=== PATIENT | male | born 1950 | race Caucasian/White ===

== ENCOUNTER 2017-06-20 13:26 | Emergency (ER) | payer MEDICARE ==
[2017-06-20 13:45] VITALS: BP 112/78
--- NOTE | 2017-06-20 13:52 | ED ---
Respiratory - HPI Summary HPI Summary: 66-year-old male presents with cough for the past week. He has history asthma. He denies any chest pain or shortness of breath. Denies abdominal pain. He states cough is productive sometimes. He denies a sore throat. He denies any fevers. He does have a history of pneumonia. He also states he's has been having a rash for the past couple days. The rash is spreading. He states that he touched some poison oak as he was outside pulling weeds. He states he's had this rash before. He states that when he gets this rash a steroid pack helps resolve it. He states the rash it itchy. He states he feels it starting on his lip as he touched his lip with his hand. The rash is on the right forearm. - History of Current Complaint Chief Complaint: UCGeneralIllness Stated Complaint: RASH COUGH Time Seen by Provider: 06/20/17 13:45 Pain Intensity: 0 - Allergy/Home Medications Allergies/Adverse Reactions: Allergies Allergy/AdvReac Type Severity Reaction Status Date / Time benzalkonium chloride Allergy Rash Verified 06/20/17 13:36 [From Merthiolate (benzalkonium)] Home Medications: Home Medications Hydrocortisone 1% CREAM(NF) 1 applic TOPICAL BID PRN 06/20/17 [History Confirmed 06/20/17] PMH/Surg Hx/FS Hx/Imm Hx Endocrine/Hematology History: Denies: Hx Anticoagulant Therapy Respiratory History: Reports: Hx Asthma - Surgical History Surgery Procedure, Year, and Place: Lumpectomy; T&A; [place] teeth extraction Infectious Disease History: Yes Infectious Disease History: Reports: Hx Hepatitis - Hep A Denies: Traveled Outside the [place] in Last 30 Days - Family History Known Family History: Positive: Hypertension - Social History Alcohol Use: Weekly Substance Use Type: Reports: None Smoking Status (MU): Never Smoked Tobacco Review of Systems Negative: Fever Negative: Chest Pain Positive: Cough. Negative: Shortness Of Breath Positive: Rash All Other Systems Reviewed And Are Negative: Yes Physical Exam Triage Information Reviewed: Yes Vital Signs On Initial Exam: Initial Vitals Temp Pulse Resp BP Pulse Ox 98.7 F 57 18 112/78 97 06/20/17 13:39 06/20/17 13:39 06/20/17 13:39 06/20/17 13:39 06/20/17 13:39 Vital Signs Reviewed: Yes Appearance: Positive: Well-Appearing Skin: Positive: Warm, Dry, Other - vesicles and papules on erythema base with exocirations on right forearm Head/Face: Positive: Normal Head/Face Inspection Eyes: Positive: Normal, Conjunctiva Clear Respiratory/Lung Sounds: Positive: Clear to Auscultation, Breath Sounds Present Cardiovascular: Positive: Normal, RRR Abdomen Description: Positive: Nontender, Soft Bowel Sounds: Positive: Present Musculoskeletal: Positive: Normal Neurological: Positive: Normal Psychiatric: Positive: Normal Diagnostics - Vital Signs Vital Signs Temp Pulse Resp BP Pulse Ox 06/20/17 13:39 98.7 F 57 18 112/78 97 - Laboratory Lab Statement: Any lab studies that have been ordered have been reviewed, and results considered in the medical decision making process. - Radiology chest Xray Interpretation: No Acute Changes Radiology Interpretation Completed By: Radiologist Disposition - Course Course Of Treatment: 66-year-old male presents with cough for the past week. He has history asthma. He denies any chest pain or shortness of breath. Denies abdominal pain. He states cough is productive sometimes. He denies a sore throat. He denies any fevers. He does have a history of pneumonia. He also states he's has been having a rash for the past couple days. The rash is spreading. He states that he touched some poison oak as he was outside pulling weeds. He states he's had this rash before. He states that when he gets this rash a steroid pack helps resolve it. He states the rash it itchy. He states he feels it starting on his lip as he touched his lip with his hand. The rash is on the right forearm. on exam has vesicles and papules on erythema in lines. appears to have contact dermatitis. will treat with steriod. lungs CTA. patient requesting chest xray. chest xray normal. will have continue inhaler. patient decline cough medication. patient understand and agrees with plan. - Differential Dx - Cardiopulmonary Differential Diagnoses - Cardiopulmonary: Asthma, Bronchitis, Lower Resp Infection - Diagnoses Provider Diagnoses: Rash, Bronchitis Discharge - Sign-Out/Discharge Documenting (check all that apply): Discharge/Admit/Transfer - Discharge Plan Condition: Good Disposition: HOME Prescriptions: methylPREDNISolone [Medrol Dosepak 4 MG*] 4 mg PO .SEE ALLISON INSTRUCTION #1 packet Patient Education Materials: Contact Dermatitis (ED), Acute Bronchitis (ED) Referrals: Lesly Michelle MD [Primary Care Provider] - Additional Instructions: take steroid pack as prescribed can apply hydrocortisone to the area twice a day for itching Continue inhaler as needed every 4-6 hours for cough Follow up with primary within 5 days Return to ED if develop any new or worsening symptoms - Billing Disposition and Condition Condition: GOOD Disposition: HOME
--- NOTE | 2017-06-20 14:10 | RAD ---
INDICATION: Cough. COMPARISON: Comparison is made with prior study from April 07, 2007. TECHNIQUE: Dual-energy PA and lateral views of the chest were obtained. FINDINGS: The heart is within normal limits in size. Mediastinal and hilar contours appear within normal limits. The lungs are clear. No pleural effusion is present. IMPRESSION: NO EVIDENCE FOR ACTIVE CARDIOPULMONARY DISEASE.
== END 2017-06-20 14:19 | disposition home or self-care (01) ==
LOC: UCEAST 13:26
DX: R21 Rash and other nonspecific skin eruption (principal); J45.909 Unspecified asthma, uncomplicated; Z88.8 Allergy status to other drugs, medicaments and biological substances
CPT/HCPCS: 71046; 99212; G0463

== ENCOUNTER 2017-09-08 16:06 | Emergency (ER) | payer MEDICARE ==
[2017-09-08] MEDS ORDERED: Tetan/Diph/Pertus SYR(Tdap)* 0.5 ML SYR(BOOSTRIX) use SYR IM ONE (16:07)
--- NOTE | 2017-09-08 16:08 | UC ---
Lower Extremity/Ankle HPI - HPI Summary HPI Summary: 67 yo male presents with puncture wound to left foot earlier today. [place] when he stepped on a nail. Nail punctured his left foot. He cleansed the area and applied a band- aid. He is unsure when his last tetanus was. - History of Current Complaint Stated Complaint: STEPPED ON A NAIL Time Seen by Provider: 09/08/17 16:07 Hx Obtained From: Patient Onset/Duration: Sudden Onset Severity Initially: Moderate Severity Currently: Mild Pain Intensity: 4 Pain Scale Used: 0-10 Numeric Able to Bear Weight: Yes - Allergies/Home Medications Allergies/Adverse Reactions: Allergies Allergy/AdvReac Type Severity Reaction Status Date / Time benzalkonium chloride Allergy Rash Verified 08/08/17 11:08 [From Merthiolate (benzalkonium)] PMH/Surg Hx/FS Hx/Imm Hx Respiratory History: Asthma Other History Of: Negative For: Anticoagulant Therapy - Surgical History Surgical History: Yes Surgery Procedure, Year, and Place: Lumpectomy; T&A; [place] teeth extraction. BASAL CELL REMOVED AROUND EYE - Family History Known Family History: Positive: Hypertension - Social History Occupation: Retired Lives: With Family Alcohol Use: Weekly Substance Use Type: None Smoking Status (MU): Never Smoked Tobacco Review of Systems Constitutional: Negative Skin: Other - Puncture wound left foot Respiratory: Negative Cardiovascular: Negative Neurovascular: Negative Musculoskeletal: Negative Neurological: Negative Psychological: Negative All Other Systems Reviewed And Are Negative: Yes Physical Exam - Summary Physical Exam Summary: GENERAL: NAD. WDWN. No pain distress. SKIN: 2mm puncture wound to plantar surface of left foot. Mild TTP. No streaking , bleeding, or drainage. NECK: Supple. Nontender. No lymphadenopathy. CHEST: No accessory muscle use. Breathing comfortably and in no distress. CV: Pulses intact NEURO: Alert. CN II-XII grossly intact. PSYCH: Age appropriate behavior. Triage Information Reviewed: Yes Vital Signs: Vital Signs: Temp Pulse Resp BP Pulse Ox 98.7 F 61 18 122/79 99 09/08/17 16:11 09/08/17 16:11 09/08/17 16:11 09/08/17 16:11 09/08/17 16:11 Vital Signs Reviewed: Yes Lower Extremity Course/Dx - Course Course Of Treatment: tdap updated today. Pt is concerned about developing an infection as he was around [place] water. Will rx for keflex. - Differential Dx/Diagnosis Provider Diagnoses: Puncture wound left foot Discharge - Sign-Out/Discharge Documenting (check all that apply): Patient Departure - Discharge Plan Condition: Stable Disposition: HOME Prescriptions: Cephalexin CAP* [Keflex CAP*] 500 mg PO BID #14 cap Patient Education Materials: Puncture Wound (DC) Referrals: Lesly Michelle MD [Primary Care Provider] - Additional Instructions: If you develop a fever, shortness of breath, chest pain, new or worsening symptoms - please call your PCP or go to the ED. 1) Your tetanus shot was updated today - Billing Disposition and Condition Condition: STABLE Disposition: Home
[2017-09-08 16:14] VITALS: BP 122/79
[2017-09-08] MEDS ORDERED: Cephalexin CAP* 500 MG PO ONE (16:19)
== END 2017-09-08 16:38 | disposition home or self-care (01) ==
LOC: UCEAST 16:06
DX: S91.332A Puncture wound without foreign body, left foot, initial encounter (principal); J45.909 Unspecified asthma, uncomplicated; Z88.8 Allergy status to other drugs, medicaments and biological substances; W45.0XXA Nail entering through skin, initial encounter; Y92.9 Unspecified place or not applicable
CPT/HCPCS: 90715; 99212; A9270-GY; G0463